=== PATIENT | male | born 1995 | race Caucasian/White ===

== ENCOUNTER 2018-12-02 10:31 | Emergency (ER) | payer OTHER ==
[~2018-12-02] VITALS: Ht 180.3 cm; Wt 94.5 kg
--- NOTE | 2018-12-02 11:42 | REP ---
Right foot: Four views. History: Crush injury. Findings: Four views of the right foot demonstrate a transversely oriented nondisplaced fracture through the distal diaphysis of the second metatarsal. No other fracture is seen. There is dorsal forefoot swelling visible on the lateral radiograph. Overall mineralization pattern is normal. Impression: Transverse fracture through the distal diaphysis of the second metatarsal, nondisplaced. Electronically Signed by Barrett Dickson MD 12/02/2018 05:21 P
[2018-12-02] MEDS ORDERED: KETOROLAC TROMETHAMINE 10 MG TAB PO ONE (12:15)
[2018-12-02] MEDS ORDERED: IBUP80TA PO (12:19)
[2018-12-02 12:28] VITALS: BP 151/84
== END 2018-12-02 12:32 | disposition home or self-care (01) ==
LOC: M ED 10:31
DX: S92.324A Nondisplaced fracture of second metatarsal bone, right foot, initial encounter for closed fracture (principal); W22.8XXA Striking against or struck by other objects, initial encounter; Y92.89 Other specified places as the place of occurrence of the external cause; Y99.0 Civilian activity done for income or pay

== ENCOUNTER → 2019-09-03 | Outpatient (CLI) | payer OTHER ==
[~2019-09-03] MED LIST: IBUP80TA PO
--- NOTE | 2019-09-03 17:12 | REP ---
Clinical: Pain with prior trauma . Technique: AP, lateral, bilateral oblique views right foot . Findings: The osseous structures and joint spaces are intact and normal. There is no evidence for acute fracture or dislocation. Surrounding soft tissues are unremarkable. No subcutaneous emphysema or radiodense foreign body. Impression: No acute fracture or dislocation. Electronically Signed by Rafael Ayoub MD 09/03/2019 05:02 P
== END ==
LOC: M LRY 16:18
PROVIDERS: ATTEND Nurse Practitioner Family
DX: S99.921A Unspecified injury of right foot, initial encounter (principal); W18.30XA Fall on same level, unspecified, initial encounter; Y92.009 Unspecified place in unspecified non-institutional (private) residence as the place of occurrence of the external cause
CPT/HCPCS: 73630; G0463